=== PATIENT | male | born 1970 | race Caucasian/White ===

== ENCOUNTER → 2017-02-22 | Outpatient (CLI) | payer OTHER ==
[~2017-02-22] MED LIST: ASPIRIN LO-DOSE81 MG PO; AXIRON30 MG/1.5 TOP; CPAP INH; MULTI VITAMIN1 EACH PO
== END | disposition disaster alternative care site (69) ==
LOC: GRAD 13:00
DX: N50.89 Other specified disorders of the male genital organs (principal); I86.1 Scrotal varices